=== PATIENT | female | born 1975 | race American Indian/Alaskan Native ===

== ENCOUNTER 2016-07-27 08:04 | Emergency (ER) | payer MEDICAID, OTHER ==
--- NOTE | 2016-07-27 08:11 | EDM.PDOC ---
ED HPI GENERAL MEDICAL PROBLEM - General Chief Complaint: Respiratory Problem Stated Complaint: COUGH Time Seen by Provider: 07/27/16 08:10 Source of Information: Reports: Patient, RN, RN Notes Reviewed History Limitations: Reports: No Limitations - History of Present Illness INITIAL COMMENTS - FREE TEXT/NARRATIVE: C/O cough for several days. Pt is unsure of fevers, but thinks that she has been having some fevers over the last few days. Pt's boyfriend reports pt has long Hx of alcohol abuse and has been drinking for several months, states that several days ago she "turned yellow". Pt denies vomiting, but reports nausea and no appetite. Denies diarrhea, bloody stool, black stool, or melena. Pt is unable to provide any further history. Onset: Unknown/Unsure Duration: Getting Worse Location: Reports: Generalized Severity: Severe Improves with: Reports: None Worsens with: Reports: None Context: Denies: Activity, Exercise, Lifting, Sick Contact, Trauma Associated Symptoms: Reports: Loss of Appetite - Related Data Allergies Allergy/AdvReac Type Severity Reaction Status Date / Time No Known Allergies Allergy Verified 07/27/16 08:33 Home Meds: Home Meds Ibuprofen [Motrin] 800 mg PO Q6H 01/26/15 [History] Past Medical History Other HEENT History: dental caries Respiratory History: Reports: Asthma Gastrointestinal History: Reports: Cirrhosis, Gastritis, GERD, GI Bleed, Hepatitis, Jaundice, Pancreatitis [employer] History: Reports: Other OB/BYN History: 6 pregnancies Psychiatric History: Reports: Addiction Social & Family History - Family History Family Medical History: Noncontributory - Tobacco Use Smoking Status *Q: Former Smoker Years of Tobacco use: 15 Packs/Tins Daily: 0.2 Used Tobacco, but Quit: Yes Month Tobacco Last Used: 09/25/2014 Second Hand Smoke Exposure: No - Caffeine Use Caffeine Use: Reports: Coffee, Soda, Tea - Alcohol Use Days Per Week of Alcohol Use: 7 Number of Drinks Per Day: 4 Total Drinks Per Week: 28 - Recreational Drug Use Recreational Drug Use: No Drug Use in Last 12 Months: No - Sexual History Sexual History: Reports: Sexually Active - Living Situation & Occupation Living situation: Reports: with Significant Other Occupation: Unemployed ED ROS GENERAL - Review of Systems Review Of Systems: ROS reveals no pertinent complaints other than HPI. ED EXAM, GENERAL - Physical Exam Exam: See Below Exam Limited By: Altered Mental Status (mild/slightly confused) General Appearance: Alert, No Apparent Distress Eye Exam: Bilateral Eye: EOMI, PERRL, Other (scleral icterus) Ears: Normal External Exam Nose: Normal Inspection, Normal Mucosa, No Blood Throat/Mouth: Normal Lips, Normal Oropharynx, Normal Voice, No Airway Compromise Head: Atraumatic, Normocephalic Neck: Normal Inspection, Supple, Non-Tender, Full Range of Motion. No: Lymphadenopathy (L), Lymphadenopathy (R) Respiratory/Chest: No Respiratory Distress, No Accessory Muscle Use, Decreased Breath Sounds, Crackles, Rhonchi (bibasilar) Cardiovascular: Regular Rate, Rhythm, No Edema, No Gallop, No JVD, No Murmur, No Rub GI/Abdominal: Normal Bowel Sounds, Soft, No Distention, Pelvis Stable, Tender ( mild generalized upper abdominal tenderness). No: Guarding, Rigid, Rebound Rectal (Female) Exam: Deferred Back Exam: Normal Inspection, Full Range of Motion. No: CVA Tenderness (L), CVA Tenderness (R) Extremities: Normal Inspection, Normal Range of Motion, Non-Tender, Normal Capillary Refill, No Pedal Edema Neurological: Alert, CN II-XII Intact, Confused (slightly), Slow to Respond Psychiatric: Depressed Mood, Flat Affect Skin Exam: Warm, Dry, Intact, Jaundice EKG INTERPRETATION EKG Date: 07/27/16 Time: 09:03 Rhythm: other (SR) Rate (beats/min): 90 [employer]: normal P-wave: present QRS: normal ST-T: other (borderline flat T waves in anterior leads) QT: prolonged Comparison: NA - no prior EKG Course - Vital Signs Last Recorded V/S: Last Vital Signs Temp 36.4 C 07/27/16 08:17 Pulse 82 07/27/16 10:04 Resp 16 07/27/16 10:04 BP 73/41 L 07/27/16 10:04 Pulse Ox 96 07/27/16 10:04 - Orders/Labs/Meds Orders: Active Orders 24 hr Category Date Time Status EKG 12 Lead [EKG Documentation Completion] [RC] STAT Care 07/27/16 08:30 Active Insert Escobar Catheter [Insert Urinary Catheter] [OM.PC] Care 07/27/16 10:00 Ordered Q24H Peripheral IV Care [RC] . DIRECTED Care 07/27/16 08:31 Active Urinary Catheter Assessment [RC] ASDIRECTED Care 07/27/16 09:53 Active CULTURE BLOOD [BC] Stat Lab 07/27/16 08:48 Received CULTURE BLOOD [BC] Stat Lab 07/27/16 08:54 Received Sodium Chloride 0.9% [Saline Flush] Med 07/27/16 08:31 Active 10 ml FLUSH ASDIRECTED PRN Blood Culture x2 Reflex Set [OM.PC] Stat Oth 07/27/16 08:31 Ordered Peripheral IV Insertion Adult [OM.PC] Stat Oth 07/27/16 08:30 Ordered Medication Orders Sodium Chloride (Saline Flush) 10 ml FLUSH ASDIRECTED PRN PRN Reason: Keep Vein Open Last Admin: 07/27/16 10:01 Dose: 10 ml Admin: 07/27/16 08:39 Dose: 10 ml Labs: Laboratory Tests 07/27/16 07/27/16 07/27/16 Range/Units 08:48 08:48 08:48 WBC 18.9 H (5.0-10.0) 10^3/uL RBC 3.07 L (4.2-5.4) 10^6/uL Hgb 9.8 L (12.0-16.0) g/dL Hct 27.9 L (37.0-47.0) % MCV 90.9 (80-100) fL MCH 31.9 (27.0-34.0) pg MCHC 35.1 H (33.0-35.0) g/dL Plt Count 159 (150-450) 10^3/uL Neut % (Auto) 85.8 H (42.2-75.2) % Lymph % (Auto) 7.2 L (20.5-50.1) % Garden % (Auto) 6.3 (2-8) % Eos % (Auto) 0.6 L (1.0-3.0) % Baso % (Auto) 0.1 (0.0-1.0) % Add Manual Diff Yes Neutrophils % (Manual) 81 % Band Neutrophils % 2 % Lymphocytes % (Manual) 11 % Monocytes % (Manual) 6 % Hypochromasia 1+ slight PT 16.3 H (9.0-12.0) SEC INR 1.6 H (0.9-1.2) APTT 32.5 (22.0-34.0) SEC Sodium 127 L (135-145) mmol/L Potassium 2.2 L* (3.6-5.0) mmol/L Chloride 81 L (101-111) mmol/L Carbon Dioxide 27.0 (21.0-31.0) mmol/L Anion Gap 21.2 BUN 81 H (7-18) mg/dL Creatinine 4.5 H (0.6-1.3) mg/dL Est Cr Clr Drug Dosing 15.25 mL/min Estimated GFR (MDRD) 11 BUN/Creatinine Ratio 18.00 Glucose 78 (74-105) mg/dL Lactic Acid (0.5-2.2) mmol/L Calcium 6.4 L (8.4-10.2) mg/dl Total Bilirubin 12.9 H (0.2-1.0) mg/dL AST 258 H (10-42) IU/L ALT 50 (10-60) IU/L Alkaline Phosphatase 555 H (42-121) IU/L Ammonia (11-35) umol/L Total Protein 5.6 L (6.7-8.2) g/dl Albumin 1.5 L (3.2-5.5) g/dl Globulin 4.1 Albumin/Globulin Ratio 0.37 Amylase 13 L (28-100) U/L Lipase < 9 L (22-51) U/L Urine Color (YELLOW) Urine Appearance (CLEAR) Urine pH (5.0-9.0) Ur Specific Beggs (1.005-1.030) Urine Protein (NEGATIVE) Urine Glucose (UA) (NEGATIVE) Urine Ketones (NEGATIVE) Urine Occult Blood (NEGATIVE) Urine Nitrite (NEGATIVE) Urine Bilirubin (NEGATIVE) Urine Urobilinogen (0.2-1.0) mg/dL Ur Leukocyte Esterase (NEGATIVE) Urine RBC /HPF Urine WBC (0-5/HPF) /HPF Ur Epithelial Cells /HPF Urine Bacteria (0-FEW/HPF) /HPF Urine Opiates Screen (NEGATIVE) Ur Oxycodone Screen (NEGATIVE) Urine Methadone Screen (NEGATIVE) Ur Barbiturates Screen (NEGATIVE) U Tricyclic Antidepress (NEGATIVE) Ur Phencyclidine Scrn (NEGATIVE) Ur Amphetamine Screen (NEGATIVE) U Methamphetamines Scrn (NEGATIVE) Urine MDMA Screen (NEGATIVE) U Benzodiazepines Scrn (NEGATIVE) Urine Cocaine Screen (NEGATIVE) U Marijuana (THC) Screen (NEGATIVE) Ethyl Alcohol < 5 mg/dL 07/27/16 07/27/16 07/27/16 Range/Units 08:48 08:48 10:15 WBC (5.0-10.0) 10^3/uL RBC (4.2-5.4) 10^6/uL Hgb (12.0-16.0) g/dL Hct (37.0-47.0) % MCV (80-100) fL MCH (27.0-34.0) pg MCHC (33.0-35.0) g/dL Plt Count (150-450) 10^3/uL Neut % (Auto) (42.2-75.2) % Lymph % (Auto) (20.5-50.1) % Garden % (Auto) (2-8) % Eos % (Auto) (1.0-3.0) % Baso % (Auto) (0.0-1.0) % Add Manual Diff Neutrophils % (Manual) % Band Neutrophils % % Lymphocytes % (Manual) % Monocytes % (Manual) % Hypochromasia PT (9.0-12.0) SEC INR (0.9-1.2) APTT (22.0-34.0) SEC Sodium (135-145) mmol/L Potassium (3.6-5.0) mmol/L Chloride (101-111) mmol/L Carbon Dioxide (21.0-31.0) mmol/L Anion Gap BUN (7-18) mg/dL Creatinine (0.6-1.3) mg/dL Est Cr Clr Drug Dosing mL/min Estimated GFR (MDRD) BUN/Creatinine Ratio Glucose (74-105) mg/dL Lactic Acid 1.8 (0.5-2.2) mmol/L Calcium (8.4-10.2) mg/dl Total Bilirubin (0.2-1.0) mg/dL AST (10-42) IU/L ALT (10-60) IU/L Alkaline Phosphatase (42-121) IU/L Ammonia 46 H (11-35) umol/L Total Protein (6.7-8.2) g/dl Albumin (3.2-5.5) g/dl Globulin Albumin/Globulin Ratio Amylase (28-100) U/L Lipase (22-51) U/L Urine Color Dark yellow (YELLOW) Urine Appearance Turbid (CLEAR) Urine pH 5.5 (5.0-9.0) Ur Specific Beggs 1.010 (1.005-1.030) Urine Protein 30 H (NEGATIVE) Urine Glucose (UA) Negative (NEGATIVE) Urine Ketones Negative (NEGATIVE) Urine Occult Blood Trace-lysed H (NEGATIVE) Urine Nitrite Negative (NEGATIVE) Urine Bilirubin Large H (NEGATIVE) Urine Urobilinogen 1.0 (0.2-1.0) mg/dL Ur Leukocyte Esterase Small H (NEGATIVE) Urine RBC 5-10 H /HPF Urine WBC 40-50 H (0-5/HPF) /HPF Ur Epithelial Cells Few /HPF Urine Bacteria Many H (0-FEW/HPF) /HPF Urine Opiates Screen (NEGATIVE) Ur Oxycodone Screen (NEGATIVE) Urine Methadone Screen (NEGATIVE) Ur Barbiturates Screen (NEGATIVE) U Tricyclic Antidepress (NEGATIVE) Ur Phencyclidine Scrn (NEGATIVE) Ur Amphetamine Screen (NEGATIVE) U Methamphetamines Scrn (NEGATIVE) Urine MDMA Screen (NEGATIVE) U Benzodiazepines Scrn (NEGATIVE) Urine Cocaine Screen (NEGATIVE) U Marijuana (THC) Screen (NEGATIVE) Ethyl Alcohol mg/dL 07/27/16 Range/Units 10:15 WBC (5.0-10.0) 10^3/uL RBC (4.2-5.4) 10^6/uL Hgb (12.0-16.0) g/dL Hct (37.0-47.0) % MCV (80-100) fL MCH (27.0-34.0) pg MCHC (33.0-35.0) g/dL Plt Count (150-450) 10^3/uL Neut % (Auto) (42.2-75.2) % Lymph % (Auto) (20.5-50.1) % Garden % (Auto) (2-8) % Eos % (Auto) (1.0-3.0) % Baso % (Auto) (0.0-1.0) % Add Manual Diff Neutrophils % (Manual) % Band Neutrophils % % Lymphocytes % (Manual) % Monocytes % (Manual) % Hypochromasia PT (9.0-12.0) SEC INR (0.9-1.2) APTT (22.0-34.0) SEC Sodium (135-145) mmol/L Potassium (3.6-5.0) mmol/L Chloride (101-111) mmol/L Carbon Dioxide (21.0-31.0) mmol/L Anion Gap BUN (7-18) mg/dL Creatinine (0.6-1.3) mg/dL Est Cr Clr Drug Dosing mL/min Estimated GFR (MDRD) BUN/Creatinine Ratio Glucose (74-105) mg/dL Lactic Acid (0.5-2.2) mmol/L Calcium (8.4-10.2) mg/dl Total Bilirubin (0.2-1.0) mg/dL AST (10-42) IU/L ALT (10-60) IU/L Alkaline Phosphatase (42-121) IU/L Ammonia (11-35) umol/L Total Protein (6.7-8.2) g/dl Albumin (3.2-5.5) g/dl Globulin Albumin/Globulin Ratio Amylase (28-100) U/L Lipase (22-51) U/L Urine Color (YELLOW) Urine Appearance (CLEAR) Urine pH (5.0-9.0) Ur Specific Beggs (1.005-1.030) Urine Protein (NEGATIVE) Urine Glucose (UA) (NEGATIVE) Urine Ketones (NEGATIVE) Urine Occult Blood (NEGATIVE) Urine Nitrite (NEGATIVE) Urine Bilirubin (NEGATIVE) Urine Urobilinogen (0.2-1.0) mg/dL Ur Leukocyte Esterase (NEGATIVE) Urine RBC /HPF Urine WBC (0-5/HPF) /HPF Ur Epithelial Cells /HPF Urine Bacteria (0-FEW/HPF) /HPF Urine Opiates Screen Negative (NEGATIVE) Ur Oxycodone Screen Negative (NEGATIVE) Urine Methadone Screen Negative (NEGATIVE) Ur Barbiturates Screen Negative (NEGATIVE) U Tricyclic Antidepress Negative (NEGATIVE) Ur Phencyclidine Scrn Negative (NEGATIVE) Ur Amphetamine Screen Negative (NEGATIVE) U Methamphetamines Scrn Negative (NEGATIVE) Urine MDMA Screen Negative (NEGATIVE) U Benzodiazepines Scrn Negative (NEGATIVE) Urine Cocaine Screen Negative (NEGATIVE) U Marijuana (THC) Screen Negative (NEGATIVE) Ethyl Alcohol mg/dL Meds: Medications Generic Name Dose Route Start Last Admin Trade Name Freq PRN Reason Stop Dose Admin Sodium Chloride 10 ml 07/27/16 08:31 06/02/17 10:01 Saline Flush FLUSH 10 ml ASDIRECTED PRN Administration Keep Vein Open Discontinued Medications Generic Name Dose Route Start Last Admin Trade Name Regino PRN Reason Stop Dose Admin Sodium Chloride 1,000 mls @ 999 mls/hr 07/27/16 08:31 07/27/16 08:31 Normal Saline IV 07/27/16 09:31 999 mls/hr .BOLUS ONE Administration Levofloxacin/Dextrose 500 mg/ 100 mls @ 100 mls/hr 07/27/16 09:30 07/27/16 09 :57 Premix IV 07/27/16 10:29 100 mls/hr ONETIME ONE Administration Potassium Chloride 10 meq/ 100 mls @ 100 mls/hr 07/27/16 09:32 07/27/16 09:37 Premix IV 07/27/16 10:31 100 mls/hr ONETIME ONE Administration Sodium Chloride 1,000 mls @ 999 mls/hr 07/27/16 09:42 07/27/16 09:50 Normal Saline IV 07/27/16 10:42 999 mls/hr .BOLUS ONE Administration Potassium Chloride 40 meq 07/27/16 09:32 07/27/16 09:37 Klor-Con 10 PO 07/27/16 09:33 40 meq ONETIME ONE Administration - Radiology Interpretation Free Text/Narrative:: CXR: Bibasilar segmental atelectasis vs infiltrates, see Rad. report. Departure - Departure Time of Disposition: 10:00 Disposition: DC/Tfer to Acute Hospital 02 Condition: critical Clinical Impression: Acute liver failure without hepatic coma, Hepatorenal syndrome, Hypokalemia, Alcohol abuse Acute kidney failure Qualifiers: Acute renal failure type: unspecified Qualified Code(s): N17.9 - Acute kidney failure, unspecified Pneumonia Qualifiers: Pneumonia type: due to unspecified organism Laterality: bilateral Lung location : lower lobe of lung Qualified Code(s): J18.9 - Pneumonia, unspecified organism - Discharge Information Forms: ED Department Discharge, Interfacility Transfer EMTALA - My Orders Last 24 Hours: My Active Orders 07/27/16 08:30 EKG 12 Lead [EKG Documentation Completion] [RC] STAT Peripheral IV Insertion Adult [OM.PC] Stat 07/27/16 08:31 Peripheral IV Care [RC] . DIRECTED Sodium Chloride 0.9% [Saline Flush] 10 ml FLUSH ASDIRECTED PRN Blood Culture x2 Reflex Set [OM.PC] Stat 07/27/16 08:48 CULTURE BLOOD [BC] Stat 07/27/16 08:54 CULTURE BLOOD [BC] Stat 07/27/16 09:53 Urinary Catheter Assessment [RC] ASDIRECTED 07/27/16 10:00 Insert Escobar Catheter [Insert Urinary Catheter] [OM.PC] Q24H - Assessment/Plan Last 24 Hours: My Active Orders 07/27/16 08:30 EKG 12 Lead [EKG Documentation Completion] [RC] STAT Peripheral IV Insertion Adult [OM.PC] Stat 07/27/16 08:31 Peripheral IV Care [RC] . DIRECTED Sodium Chloride 0.9% [Saline Flush] 10 ml FLUSH ASDIRECTED PRN Blood Culture x2 Reflex Set [OM.PC] Stat 07/27/16 08:48 CULTURE BLOOD [BC] Stat 07/27/16 08:54 CULTURE BLOOD [BC] Stat 07/27/16 09:53 Urinary Catheter Assessment [RC] ASDIRECTED 07/27/16 10:00 Insert Ecsobar Catheter [Insert Urinary Catheter] [OM.PC] Q24H
[2016-07-27] MEDS ORDERED: Sodium Chloride 0.9% 1,000 ML IV ONE ×2 (08:31→09:42)
[2016-07-27] MEDS: Sodium Chloride 0.9% 10 ML Syringe FLUSH PRN ×2 (08:39→10:01)
[2016-07-27 09:20] LABS: CHLORIDE,CL 81 mmol/L (101-111); SODIUM,NA 127 mmol/L (135-145)
[2016-07-27] MEDS ORDERED: Levofloxacin/Dextrose 5%-Water 500 MG in Premix Bag 1 BAG IV ONE (09:30)
[2016-07-27] MEDS ORDERED: Potassium Chloride 10 MEQ in Premix Bag 1 BAG IV ONE (09:32)
[2016-07-27] MEDS ORDERED: Potassium Chloride 10 MEQ Tab.ER PO ONE (09:32)
[2016-07-27 10:05] VITALS: BP 73/41
--- NOTE | 2016-08-31 12:45 | EKG ---
07/27/2016 - MARYAN VILLANUEVA - [id number] EKG shows normal sinus rhythm with heart rate of 90. No significant ST elevation or ST depression noted on this 12-lead EKG. [facility] /[id number]
== END 2016-07-27 11:00 ==
LOC: DL.ED 08:04
DX: J18.9 Pneumonia, unspecified organism (principal); N17.9 Acute kidney failure, unspecified; K72.00 Acute and subacute hepatic failure without coma; K76.7 Hepatorenal syndrome; E87.6 Hypokalemia; F10.10 Alcohol abuse, uncomplicated; J45.909 Unspecified asthma, uncomplicated; K21.9 Gastro-esophageal reflux disease without esophagitis; Z87.891 Personal history of nicotine dependence
CPT/HCPCS: 36415; 51702; 71010; 80053; 80305; 81001; 82140; 82150; 83605; 83690; 85025; 85610; 85730; 87040; 93005; 96365; 96366; 96368; 99285; A9270; G0480; J1956; J3480; J7030; J7050

== ENCOUNTER 2016-11-19 19:13 | Emergency (ER) | payer MEDICAID, OTHER ==
[2016-11-19 19:30] VITALS: BP 148/99
[2016-11-19] MEDS ORDERED: Ondansetron 4 MG Tab.DIS PO ONE (19:37)
[2016-11-19] MEDS ORDERED: Metoclopramide 10 MG/2 ML SDV IVPUSH ONE (22:19)
[2016-11-19] MEDS ORDERED: Famotidine 20 MG/2 ML SDV IVPUSH ONE (22:19)
[2016-11-19 23:05] LABS: CHLORIDE,CL 107 mmol/L (101-111); SODIUM,NA 144 mmol/L (135-145)
[2016-11-19] MEDS ORDERED: Potassium Chloride 10 MEQ in Premix Bag 1 BAG IV ONE (23:14)
[2016-11-19] MEDS ORDERED: Sodium Chloride 0.9% 1,000 ML IV ONE (23:15)
--- NOTE | 2016-11-19 23:28 | EDM.PDOC ---
ED HPI GENERAL MEDICAL PROBLEM - General Chief Complaint: Gastrointestinal Problem Stated Complaint: [id number] CHEST PAIN Time Seen by Provider: 11/19/16 22:17 Source of Information: Reports: Patient History Limitations: Reports: No Limitations - History of Present Illness INITIAL COMMENTS - FREE TEXT/NARRATIVE: vomiting since noon today, clear liquid. Admits drinking 2 days ago. C/o epigastric pain, worse with vomiting Epigastric Pain Score (Numeric/FACES): 8 - Related Data Allergies Allergy/AdvReac Type Severity Reaction Status Date / Time No Known Allergies Allergy Verified 11/19/16 19:30 Home Meds: Home Meds Ibuprofen [Motrin] 800 mg PO Q6H 01/26/15 [History] Albuterol Sulfate [Proair Hfa] 2 puff INH DAILY 11/19/16 [History] Iron 18 mg PO DAILY 11/19/16 [History] Mometasone/Formoterol [Dulera 100-5 MCG] 2 puff INH BID 11/19/16 [History] Multivitamin [One Daily] 1 each PO DAILY 11/19/16 [History] Past Medical History Other HEENT History: dental caries Cardiovascular History: Reports: None Respiratory History: Reports: Asthma Gastrointestinal History: Reports: Cirrhosis, Gastritis, GERD, GI Bleed, Hepatitis, Jaundice, Pancreatitis Genitourinary History: Reports: None [employer] History: Reports: Other OB/BYN History: 6 pregnancies Musculoskeletal History: Reports: None Neurological History: Reports: None Psychiatric History: Reports: Addiction Endocrine/Metabolic History: Reports: None Hematologic History: Reports: Other (See Below) Other Hematologic History: jaundice Immunologic History: Reports: None Oncologic (Cancer) History: Reports: None Dermatologic History: Reports: None Other Dermatologic History: jaundice - Infectious Disease History Infectious Disease History: Reports: Hepatitis C - Past Surgical History Head Surgeries/Procedures: Reports: None Social & Family History - Family History Family Medical History: Noncontributory - Tobacco Use Smoking Status *Q: Never Smoker Years of Tobacco use: 15 Packs/Tins Daily: 0.2 Used Tobacco, but Quit: Yes Month Tobacco Last Used: 09/25/2014 Second Hand Smoke Exposure: No - Caffeine Use Caffeine Use: Reports: Coffee, Soda, Tea - Alcohol Use Days Per Week of Alcohol Use: 7 Number of Drinks Per Day: 4 Total Drinks Per Week: 28 - Recreational Drug Use Recreational Drug Use: No Drug Use in Last 12 Months: No - Sexual History Sexual History: Reports: Sexually Active - Living Situation & Occupation Living situation: Reports: with Significant Other Occupation: Unemployed ED ROS GENERAL - Review of Systems Review Of Systems: See Below Constitutional: Reports: No Symptoms HEENT: Reports: No Symptoms Respiratory: Reports: No Symptoms Cardiovascular: Reports: No Symptoms GI/Abdominal: Reports: Abdominal Pain, Decreased Appetite, Nausea, Vomiting : Reports: No Symptoms Musculoskeletal: Reports: No Symptoms Skin: Reports: No Symptoms Neurological: Reports: No Symptoms ED EXAM, GI/ABD - Physical Exam Exam: See Below Exam Limited By: No Limitations General Appearance: Alert, Mild Distress Eyes: Bilateral: EOMI, Pale Conjunctiva Ears: Normal External Exam Nose: Normal Inspection Throat/Mouth: Normal Inspection Head: Atraumatic, Normocephalic Neck: Normal Inspection Respiratory/Chest: No Respiratory Distress, Lungs Clear, Normal Breath Sounds Cardiovascular: Normal Peripheral Pulses, Regular Rate, Rhythm GI/Abdominal Exam: Normal Bowel Sounds, Soft, Tender (epigastric LUQ), Other ( clear emesis) Back Exam: Normal Inspection Neurological: Alert, Oriented, Normal Cognition Skin Exam: Warm, Dry, Intact, Normal Color Course - Vital Signs Last Recorded V/S: Last Vital Signs Temp 97 F 11/19/16 19:26 Pulse 92 11/19/16 19:26 Resp 18 11/19/16 19:26 BP 148/99 H 11/19/16 19:26 Pulse Ox 96 11/19/16 19:26 - Orders/Labs/Meds Labs: Laboratory Tests 11/19/16 11/19/16 11/19/16 Range/Units 22:30 22:30 22:45 WBC 7.8 (5.0-10.0) 10^3/uL RBC 4.00 L (4.2-5.4) 10^6/uL Hgb 12.2 D (12.0-16.0) g/dL Hct 36.8 L (37.0-47.0) % MCV 92.0 (80-100) fL MCH 30.5 (27.0-34.0) pg MCHC 33.2 (33.0-35.0) g/dL Plt Count 284 D (150-450) 10^3/uL Neut % (Auto) 84.3 H (42.2-75.2) % Lymph % (Auto) 9.9 L (20.5-50.1) % Coffey % (Auto) 5.7 (2-8) % Eos % (Auto) 0.0 L (1.0-3.0) % Baso % (Auto) 0.1 (0.0-1.0) % Sodium 144 D (135-145) mmol/L Potassium 3.0 L (3.6-5.0) mmol/L Chloride 107 D (101-111) mmol/L Carbon Dioxide 22.0 (21.0-31.0) mmol/L Anion Gap 18.0 BUN 10 D (7-18) mg/dL Creatinine 1.0 D (0.6-1.3) mg/dL Est Cr Clr Drug Dosing 67.29 mL/min Estimated GFR (MDRD) > 60 BUN/Creatinine Ratio 10.00 Glucose 108 H (74-105) mg/dL Calcium 10.2 D (8.4-10.2) mg/dl Total Bilirubin 1.4 H (0.2-1.0) mg/dL AST 88 H (10-42) IU/L ALT 43 (10-60) IU/L Alkaline Phosphatase 124 H (42-121) IU/L Troponin I < 0.02 (0.00-0.02) ng/ml Total Protein 7.8 (6.7-8.2) g/dl Albumin 3.8 (3.2-5.5) g/dl Globulin 4.0 Albumin/Globulin Ratio 0.95 Amylase 77 (28-100) U/L Lipase 18 L (22-51) U/L Urine Color (YELLOW) Urine Appearance (CLEAR) Urine pH (5.0-9.0) Ur Specific Mather (1.005-1.030) Urine Protein (NEGATIVE) Urine Glucose (UA) (NEGATIVE) Urine Ketones (NEGATIVE) Urine Occult Blood (NEGATIVE) Urine Nitrite (NEGATIVE) Urine Bilirubin (NEGATIVE) Urine Urobilinogen (0.2-1.0) mg/dL Ur Leukocyte Esterase (NEGATIVE) Urine RBC /HPF Urine WBC (0-5/HPF) /HPF Ur Epithelial Cells /HPF Urine Bacteria (0-FEW/HPF) /HPF Urinalysis Comment Urine Opiates Screen Negative (NEGATIVE) Ur Oxycodone Screen Negative (NEGATIVE) Urine Methadone Screen Negative (NEGATIVE) Ur Barbiturates Screen Negative (NEGATIVE) U Tricyclic Antidepress Negative (NEGATIVE) Ur Phencyclidine Scrn Negative (NEGATIVE) Ur Amphetamine Screen Negative (NEGATIVE) U Methamphetamines Scrn Negative (NEGATIVE) Urine MDMA Screen Negative (NEGATIVE) U Benzodiazepines Scrn Negative (NEGATIVE) Urine Cocaine Screen Negative (NEGATIVE) U Marijuana (THC) Screen Negative (NEGATIVE) Ethyl Alcohol < 5 mg/dL 11/19/16 Range/Units 22:45 WBC (5.0-10.0) 10^3/uL RBC (4.2-5.4) 10^6/uL Hgb (12.0-16.0) g/dL Hct (37.0-47.0) % MCV (80-100) fL MCH (27.0-34.0) pg MCHC (33.0-35.0) g/dL Plt Count (150-450) 10^3/uL Neut % (Auto) (42.2-75.2) % Lymph % (Auto) (20.5-50.1) % [place]offey % (Auto) (2-8) % Eos % (Auto) (1.0-3.0) % Baso % (Auto) (0.0-1.0) % Sodium (135-145) mmol/L Potassium (3.6-5.0) mmol/L Chloride (101-111) mmol/L Carbon Dioxide (21.0-31.0) mmol/L Anion Gap BUN (7-18) mg/dL Creatinine (0.6-1.3) mg/dL Est Cr Clr Drug Dosing mL/min Estimated GFR (MDRD) BUN/Creatinine Ratio Glucose (74-105) mg/dL Calcium (8.4-10.2) mg/dl Total Bilirubin (0.2-1.0) mg/dL AST (10-42) IU/L ALT (10-60) IU/L Alkaline Phosphatase (42-121) IU/L Troponin I (0.00-0.02) ng/ml Total Protein (6.7-8.2) g/dl Albumin (3.2-5.5) g/dl Globulin Albumin/Globulin Ratio Amylase (28-100) U/L Lipase (22-51) U/L Urine Color Yellow (YELLOW) Urine Appearance Slightly cloudy (CLEAR) Urine pH 7.0 (5.0-9.0) Ur Specific Mather 1.015 (1.005-1.030) Urine Protein 30 H (NEGATIVE) Urine Glucose (UA) Negative (NEGATIVE) Urine Ketones 15 H (NEGATIVE) Urine Occult Blood Trace-lysed H (NEGATIVE) Urine Nitrite Negative (NEGATIVE) Urine Bilirubin Negative (NEGATIVE) Urine Urobilinogen 0.2 (0.2-1.0) mg/dL Ur Leukocyte Esterase Small H (NEGATIVE) Urine RBC 0-5 /HPF Urine WBC 5-10 H (0-5/HPF) /HPF Ur Epithelial Cells Moderate H /HPF Urine Bacteria Moderate H (0-FEW/HPF) /HPF Urinalysis Comment Urine Opiates Screen (NEGATIVE) Ur Oxycodone Screen (NEGATIVE) Urine Methadone Screen (NEGATIVE) Ur Barbiturates Screen (NEGATIVE) U Tricyclic Antidepress (NEGATIVE) Ur Phencyclidine Scrn (NEGATIVE) Ur Amphetamine Screen (NEGATIVE) U Methamphetamines Scrn (NEGATIVE) Urine MDMA Screen (NEGATIVE) U Benzodiazepines Scrn (NEGATIVE) Urine Cocaine Screen (NEGATIVE) U Marijuana (THC) Screen (NEGATIVE) Ethyl Alcohol mg/dL Meds: Medications Discontinued Medications Generic Name Dose Route Start Last Admin Trade Name Freq PRN Reason Stop Dose Admin Famotidine 20 mg 11/19/16 22:19 11/19/16 22:58 Pepcid IVPUSH 11/19/16 22:20 20 mg ONETIME ONE Administration Potassium Chloride 10 meq/ 100 mls @ 100 mls/hr 11/19/16 23:14 11/19/16 23:21 Premix IV 11/20/16 00:13 100 mls/hr ONETIME ONE Administration Sodium Chloride 1,000 mls @ 999 mls/hr 11/19/16 23:15 11/19/16 23:20 Normal Saline IV 11/20/16 00:15 999 mls/hr .BOLUS ONE Administration Metoclopramide HCl 10 mg 11/19/16 22:19 11/19/16 22:58 Reglan IVPUSH 11/19/16 22:20 10 mg ONETIME ONE Administration Ondansetron HCl 4 mg 11/19/16 19:37 11/19/16 19:39 Zofran Odt PO 11/19/16 19:38 4 mg ONETIME ONE Administration Departure - Departure Time of Disposition: 01:07 Disposition: Home, Self-Care 01 Condition: Fair Clinical Impression: Gastritis due to alcohol without hemorrhage Qualifiers: Chronicity: acute Qualified Code(s): K29.20 - Alcoholic gastritis without bleeding - Discharge Information Instructions: Gastritis, Adult, [id number] Forms: ED Department Discharge Additional Instructions: bland diet avoid alcohol follow up with primary care to recheck potassium and liver enzymes on or Saturday.
== END 2016-11-20 01:17 | disposition home or self-care (01) ==
LOC: DL.ED 19:13
DX: K29.20 Alcoholic gastritis without bleeding (principal); J45.909 Unspecified asthma, uncomplicated; K21.9 Gastro-esophageal reflux disease without esophagitis; Z79.899 Other long term (current) drug therapy
CPT/HCPCS: 36415; 80053; 80305; 81001; 82150; 83690; 84484; 85025; 96361; 96365; 96375; 99283; A9270; G0480; J2765; J3480; J7030; S0028

== ENCOUNTER 2020-08-25 16:47 | Emergency (ER) | payer MEDICAID, OTHER ==
--- NOTE | 2020-08-25 17:16 | EDM.PDOC ---
<Wero Alcantar - Last Filed: 08/25/20 17:38> ED HPI GENERAL MEDICAL PROBLEM - General Chief Complaint: General Stated Complaint: [facility] Time Seen by Provider: 08/25/20 17:25 Source of Information: Reports: Patient History Limitations: Reports: No Limitations - History of Present Illness INITIAL COMMENTS - FREE TEXT/NARRATIVE: This 45 yo female patient was sent to the ED from the [facility] due to intermittent dizziness, frequent falls, with a history of liver failure. The patient reports she started to have intermittent dizziness about 1 month ago with frequent falls due to the dizziness. The patient reports she found out she was yesterday. The patient reports she was having some chest pain due to a fall for weeks. The patient reports she has noticed lower extremity weakness since 2003. The patient reports she has been eating normally and drinking plenty of fluids. The patient denies any drug or alcohol use. Onset: Unknown/Unsure Duration: Week(s): Location: Reports: Generalized Quality: Reports: Other Severity: Moderate Improves with: Reports: None Worsens with: Reports: None Context: Reports: Other Associated Symptoms: Reports: Weakness - Related Data Allergies Allergy/AdvReac Type Severity Reaction Status Date / Time No Known Allergies Allergy Verified 08/25/20 17:02 Home Meds: Home Meds Ibuprofen [Motrin] 800 mg PO Q6H PRN 01/26/15 [History] Albuterol Sulfate [Proair Hfa] 2 puff INH DAILY 11/19/16 [History] Iron 18 mg PO DAILY 11/19/16 [History] Mometasone/Formoterol [Dulera 100-5 MCG] 2 puff INH BID 11/19/16 [History] Multivitamin [One Daily] 1 each PO DAILY 11/19/16 [History] Past Medical History Other HEENT History: dental caries Cardiovascular History: Reports: None Respiratory History: Reports: Asthma Gastrointestinal History: Reports: Cirrhosis, Gastritis, GERD, GI Bleed, Hepatitis, Jaundice, Pancreatitis Genitourinary History: Reports: None COSTUME SPECIALIST History: Reports: Other COSTUME SPECIALIST History: 6 pregnancies Musculoskeletal History: Reports: None Neurological History: Reports: None Psychiatric History: Reports: Addiction Endocrine/Metabolic History: Reports: None Hematologic History: Reports: Other (See Below) Other Hematologic History: jaundice Immunologic History: Reports: None Oncologic (Cancer) History: Reports: None Dermatologic History: Reports: None Other Dermatologic History: jaundice - Infectious Disease History Infectious Disease History: Reports: Hepatitis C - Past Surgical History Head Surgeries/Procedures: Reports: None Social & Family History - Family History Family Medical History: No Pertinent Family History - Caffeine Use Caffeine Use: Reports: Coffee, Soda, Tea - Sexual History Sexual History: Reports: Sexually Active - Living Situation & Occupation Living situation: Reports: with Significant Other Occupation: Unemployed ED ROS GENERAL - Review of Systems Review Of Systems: Comprehensive ROS is negative, except as noted in HPI. ED EXAM, GENERAL - Physical Exam Exam: See Below Exam Limited By: No Limitations General Appearance: Alert, WD/WN, Mild Distress Eye Exam: Bilateral Eye: EOMI, Normal Inspection, PERRL Ears: Normal External Exam, Normal Canal, Hearing Grossly Normal, Normal TMs Nose: Normal Inspection, Normal Mucosa, No Blood Throat/Mouth: Normal Inspection, Normal Lips, Normal Teeth, Normal Gums, Normal Oropharynx, Normal Voice, No Airway Compromise Head: Other (Diffuse bruising to right side of face (patient denies abuse)) Neck: Normal Inspection, Supple, Non-Tender, Full Range of Motion Respiratory/Chest: No Respiratory Distress, Lungs Clear, Normal Breath Sounds, No Accessory Muscle Use, Other (generalized anterior chest wall pain) Cardiovascular: Normal Peripheral Pulses, Regular Rate, Rhythm, No Edema, No Gallop, No JVD, No Murmur, No Rub GI/Abdominal: Normal Bowel Sounds, Soft, Non-Tender, No Organomegaly, No Distention, No Abnormal Bruit, No Mass (Female) Exam: Deferred Rectal (Female) Exam: Deferred Back Exam: Normal Inspection, Full Range of Motion, NT Extremities: Normal Range of Motion, Non-Tender, No Pedal Edema, Normal Capillary Refill, Other (diffuse bruising) Neurological: Alert, Oriented, CN II-XII Intact, Normal Cognition, Normal Gait, Normal Reflexes, No Motor/Sensory Deficits Psychiatric: Normal Affect, Normal Mood Skin Exam: Other (Numerous bruises) Lymphatic: No Adenopathy #1 Interpretation EKG Date: 08/25/20 Time: 17:13 Rhythm: NSR Rate (Beats/Min): 87 [place]: Normal P-Wave: Present QRS: Normal ST-T: Normal QT: Normal Comparison: No Change Departure - Departure Disposition: Home, Self-Care 01 Clinical Impression: Anemia, UTI (urinary tract infection), Hx of fracture of rib, Falls frequently - Discharge Information Instructions: Fall Prevention in the Home, Adult, [id number], Urinary Tract Infection, Adult, [id number] Forms: ED Department Discharge Additional Instructions: Iron supplement as ordered by primary care recheck clinic Saturday, sooner if symptoms change, difficulty breathign weakness increased dizziness change positions slowly stay hydrated in warm weather keflex 500mg twice daily for 5 days <Valery Mendes - Last Filed: 08/25/20 20:54> Course - Vital Signs Last Recorded V/S: Last Vital Signs Temp 97.4 F 08/25/20 16:47 Pulse 90 08/25/20 16:47 Resp 24 H 08/25/20 16:47 BP 112/55 L 08/25/20 16:47 Pulse Ox 97 08/25/20 16:47 Orthostatic Blood Pressure [ 150/115 Standing] Orthostatic Blood Pressure [ 145/103 Sitting] Orthostatic Blood Pressure [ 142/98 Supine] - Orders/Labs/Meds Orders: Active Orders 24 hr Category Date Time Status Blood Glucose Check, Bedside [RC] ONETIME Care 08/25/20 19:24 Active EKG Documentation Completion [RC] STAT Care 08/25/20 17:10 Active Orthostatic Vital Signs [RC] ASDIRECTED Care 08/25/20 19:43 Active CULTURE URINE [RM] Urgent Lab 08/25/20 19:28 Received Labs: Laboratory Tests 08/25/20 08/25/20 08/25/20 Range/Units 17:35 17:35 17:35 WBC 3.6 L (5.0-10.0) 10^3/uL RBC 2.48 L (4.2-5.4) 10^6/uL Hgb 7.9 L D (12.0-16.0) g/dL Hct 25.6 L (37.0-47.0) % MCV 103.2 H D (80-100) fL MCH 31.9 (27.0-34.0) pg MCHC 30.9 L (33.0-35.0) g/dL Plt Count 208 D (150-450) 10^3/uL Neut % (Auto) 55.5 (42.2-75.2) % Lymph % (Auto) 26.7 (20.5-50.1) % [place] % (Auto) 13.1 H (2-8) % Eos % (Auto) 4.4 H (1.0-3.0) % Baso % (Auto) 0.3 (0.0-1.0) % PT (9.0-12.0) SEC INR (0.9-1.2) Sodium 142 (136-145) mmol/L Potassium 3.5 (3.5-5.1) mmol/L Chloride 109 H (98-107) mmol/L Carbon Dioxide 21 (21-32) mmol/L Anion Gap 15.5 H (7-13) mEq/L BUN 13 (7-18) mg/dL Creatinine 1.05 H (0.55-1.02) mg/dL Est Cr Clr Drug Dosing 61.52 mL/min Estimated GFR (MDRD) 57 BUN/Creatinine Ratio 12.4 (No establ ref range) Glucose 96 (70-99) mg/dL POC Glucose (70-99) mg/dL Calcium 8.1 L (8.5-10.1) mg/dL Total Bilirubin 0.8 (0.2-1.0) mg/dL AST 36 (15-37) U/L ALT 22 (14-59) U/L Alkaline Phosphatase 207 H (46-116) U/L Total Protein 7.6 (6.4-8.2) g/dL Albumin 2.7 L (3.4-5.0) g/dL Globulin 4.9 Albumin/Globulin Ratio 0.55 HCG, Quant 2 (0-6) mIU/mL Urine Color (YELLOW) Urine Appearance (CLEAR) Urine pH (5.0-9.0) Ur Specific [place] (1.005-1.030) Urine Protein (NEGATIVE) Urine Glucose (UA) (NEGATIVE) Urine Ketones (NEGATIVE) Urine Occult Blood (NEGATIVE) Urine Nitrite (NEGATIVE) Urine Bilirubin (NEGATIVE) Urine Urobilinogen (0.2-1.0) mg/dL Ur Leukocyte Esterase (NEGATIVE) Urine RBC /HPF Urine WBC (0-5/HPF) /HPF Ur Epithelial Cells (NOT SEEN) /HPF Amorphous Sediment (NOT SEEN) /HPF Urine Bacteria (0-FEW/HPF) /HPF Urine Mucus (NOT SEEN) /LPF Urine HCG, Qual 08/25/20 08/25/20 08/25/20 Range/Units 19:23 19:27 19:28 WBC (5.0-10.0) 10^3/uL RBC (4.2-5.4) 10^6/uL Hgb (12.0-16.0) g/dL Hct (37.0-47.0) % MCV (80-100) fL MCH (27.0-34.0) pg MCHC (33.0-35.0) g/dL Plt Count (150-450) 10^3/uL Neut % (Auto) (42.2-75.2) % Lymph % (Auto) (20.5-50.1) % [place] % (Auto) (2-8) % Eos % (Auto) (1.0-3.0) % Baso % (Auto) (0.0-1.0) % PT 11.5 (9.0-12.0) SEC INR 1.1 (0.9-1.2) Sodium (136-145) mmol/L Potassium (3.5-5.1) mmol/L Chloride (98-107) mmol/L Carbon Dioxide (21-32) mmol/L Anion Gap (7-13) mEq/L BUN (7-18) mg/dL Creatinine (0.55-1.02) mg/dL Est Cr Clr Drug Dosing mL/min Estimated GFR (MDRD) BUN/Creatinine Ratio (No establ ref range) Glucose (70-99) mg/dL POC Glucose 82 (70-99) mg/dL Calcium (8.5-10.1) mg/dL Total Bilirubin (0.2-1.0) mg/dL AST (15-37) U/L ALT (14-59) U/L Alkaline Phosphatase (46-116) U/L Total Protein (6.4-8.2) g/dL Albumin (3.4-5.0) g/dL Globulin Albumin/Globulin Ratio HCG, Quant (0-6) mIU/mL Urine Color Yellow (YELLOW) Urine Appearance Slightly cloudy (CLEAR) Urine pH 7.0 (5.0-9.0) Ur Specific [place] 1.015 (1.005-1.030) Urine Protein Trace H (NEGATIVE) Urine Glucose (UA) Negative (NEGATIVE) Urine Ketones Negative (NEGATIVE) Urine Occult Blood Large H (NEGATIVE) Urine Nitrite Negative (NEGATIVE) Urine Bilirubin Negative (NEGATIVE) Urine Urobilinogen 0.2 (0.2-1.0) mg/dL Ur Leukocyte Esterase Small H (NEGATIVE) Urine RBC 75-100 H /HPF Urine WBC 10-20 H (0-5/HPF) /HPF Ur Epithelial Cells Rare (NOT SEEN) /HPF Amorphous Sediment Few (NOT SEEN) /HPF Urine Bacteria Occasional (0-FEW/HPF) /HPF Urine Mucus Occasional (NOT SEEN) /LPF Urine HCG, Qual 08/25/20 Range/Units 19:32 WBC (5.0-10.0) 10^3/uL RBC (4.2-5.4) 10^6/uL Hgb (12.0-16.0) g/dL Hct (37.0-47.0) % MCV (80-100) fL MCH (27.0-34.0) pg MCHC (33.0-35.0) g/dL Plt Count (150-450) 10^3/uL Neut % (Auto) (42.2-75.2) % Lymph % (Auto) (20.5-50.1) % [place] % (Auto) (2-8) % Eos % (Auto) (1.0-3.0) % Baso % (Auto) (0.0-1.0) % PT (9.0-12.0) SEC INR (0.9-1.2) Sodium (136-145) mmol/L Potassium (3.5-5.1) mmol/L Chloride (98-107) mmol/L Carbon Dioxide (21-32) mmol/L Anion Gap (7-13) mEq/L BUN (7-18) mg/dL Creatinine (0.55-1.02) mg/dL Est Cr Clr Drug Dosing mL/min Estimated GFR (MDRD) BUN/Creatinine Ratio (No establ ref range) Glucose (70-99) mg/dL POC Glucose (70-99) mg/dL Calcium (8.5-10.1) mg/dL Total Bilirubin (0.2-1.0) mg/dL AST (15-37) U/L ALT (14-59) U/L Alkaline Phosphatase (46-116) U/L Total Protein (6.4-8.2) g/dL Albumin (3.4-5.0) g/dL Globulin Albumin/Globulin Ratio HCG, Quant (0-6) mIU/mL Urine Color (YELLOW) Urine Appearance (CLEAR) Urine pH (5.0-9.0) Ur Specific [place] (1.005-1.030) Urine Protein (NEGATIVE) Urine Glucose (UA) (NEGATIVE) Urine Ketones (NEGATIVE) Urine Occult Blood (NEGATIVE) Urine Nitrite (NEGATIVE) Urine Bilirubin (NEGATIVE) Urine Urobilinogen (0.2-1.0) mg/dL Ur Leukocyte Esterase (NEGATIVE) Urine RBC /HPF Urine WBC (0-5/HPF) /HPF Ur Epithelial Cells (NOT SEEN) /HPF Amorphous Sediment (NOT SEEN) /HPF Urine Bacteria (0-FEW/HPF) /HPF Urine Mucus (NOT SEEN) /LPF Urine HCG, Qual Negative Departure - Departure Time of Disposition: 20:49 Condition: Good - Discharge Information *PRESCRIPTION DRUG MONITORING PROGRAM REVIEWED*: No *COPY OF PRESCRIPTION DRUG MONITORING REPORT IN PATIENT JALEEL: No Sepsis Event Note (ED) - Focused Exam Vital Signs: Vital Signs Temp Pulse Resp BP Pulse Ox 08/25/20 16:47 97.4 F 90 24 H 112/55 L 97 - My Orders Last 24 Hours: My Active Orders 08/25/20 19:24 Blood Glucose Check, Bedside [RC] ONETIME 08/25/20 19:28 CULTURE URINE [RM] Urgent 08/25/20 19:43 Orthostatic Vital Signs [RC] ASDIRECTED - Assessment/Plan Last 24 Hours: My Active Orders 08/25/20 19:24 Blood Glucose Check, Bedside [RC] ONETIME 08/25/20 19:28 CULTURE URINE [RM] Urgent 08/25/20 19:43 Orthostatic Vital Signs [RC] ASDIRECTED
[2020-08-25 17:54] VITALS: BP 112/55; PULSE 90
[2020-08-25 18:00] LABS: ANION GAP 15.5 mEq/L (7-13)
--- NOTE | 2020-08-25 20:00 | US ---
PROCEDURE INFORMATION: Exam: US , Limited Exam date and time: 08/25/2020 7:03 PM Age: 45 years old Clinical indication: Other: Upper abd pain; Gestational age or lmp: 4 w 5 d; Additional info: Positive hcg test yesterday. Quant today is 2 TECHNIQUE: Imaging protocol: Real-time ultrasound of the maternal uterus with image documentation. Exam focused on the clinical indication. COMPARISON: No relevant prior studies available. FINDINGS: Gestation: There is no gestational sac within the uterus. MATERNAL: Uterus: Uterus is normal in size and echogenicity. No myometrial mass. Its dimensions are 7.6 x 5 x 3.8 cm. Right adnexa: Right ovary is seen measuring 2.7 x 2 x 0.8 cm. No adnexal masses. Left adnexa: Left ovary is seen measuring 1.7 cm in diameter. Intraperitoneal space: No free fluid. IMPRESSION: There is no gestational sac within the uterus. Absence of a gestational sac within the uterus of a patient may indicate early intrauterine gestation, complete or ectopic .
--- NOTE | 2020-08-25 20:34 | CR ---
PROCEDURE INFORMATION: Exam: XR Ribs with PA Chest Exam date and time: 08/25/2020 8:02 PM Age: 45 years old Clinical indication: Other: Bruising over anterior chest; Additional info: Freq falls rib and chest bruising TECHNIQUE: Imaging protocol: XR bilateral ribs with PA chest. Views: 4 views COMPARISON: CR Chest 1V Frontal 07/27/2016 9:18 AM FINDINGS: Lungs: Unremarkable. No consolidation. Pleural spaces: Unremarkable. No pleural effusion. No pneumothorax. Heart/Mediastinum: Unremarkable. No cardiomegaly. Bones/joints: Bilateral old anterior rib fractures which are seen to affect anterior left 4th through 9th ribs and right 5th, 7th, 8th, and 9th ribs. IMPRESSION: Bilateral old anterior rib fractures which are seen to affect anterior left 4th through 9th ribs and right 5th, 7th, 8th, and 9th ribs.
[2020-08-25] MEDS ORDERED: Cephalexin 500 MG Cap PO ONE (20:53)
== END 2020-08-25 21:23 | disposition home or self-care (01) ==
LOC: DL.ED 16:47
DX: N39.0 Urinary tract infection, site not specified (principal); D64.9 Anemia, unspecified; R29.6 Repeated falls
CPT/HCPCS: 36415; 71111; 76815; 80053; 81001; 81025; 82272; 82947; 84702; 85025; 85610; 87086; 93005; 99285; A9270

== ENCOUNTER 2021-03-22 15:52 | Emergency (ER) | payer BC, MEDICAID, OTHER ==
[2021-03-22 16:00] VITALS: BP 116/87; PULSE 88
[2021-03-22 16:54] LABS: ANION GAP 14.8 mEq/L (7-13)
[2021-03-22] MEDS ORDERED: Iopamidol 612 MG/ML 100 ML Bottle IVPUSH ONE (17:14)
[2021-03-22] MEDS: Sodium Chloride 0.9% 1,000 ML IV ONE (19:07)
== END 2021-03-22 19:17 | disposition home or self-care (01) ==
LOC: DL.ED 15:52
DX: N30.01 Acute cystitis with hematuria (principal); K80.80 Other cholelithiasis without obstruction; Z87.891 Personal history of nicotine dependence
CPT/HCPCS: 36415; 74176; 74177; 80053; 81001; 81025; 83605; 85025; 86140; 87086; 99284-25

== ENCOUNTER 2021-10-10 01:27 | Inpatient (IN) | payer MEDICAID ==
[~2021-10-10 01:27] MED LIST: Sodium Chloride 0.9% 1,000 ML IV ONE
[2021-10-10] MEDS ORDERED: Ondansetron 4 MG/2 ML SDV IVPUSH ONE (01:29)
[2021-10-10] MEDS ORDERED: fentaNYL 100 MCG/2 ML SDV IVPUSH ONE (01:29)
[2021-10-10] MEDS ORDERED: Sodium Chloride 0.9% 1,000 ML IV ONE ×2 (01:50→02:28)
[2021-10-10] MEDS ORDERED: Piperacillin/Tazobactam 3.375 GM in Sodium Chloride 0.9% 100 ML IV ONE (01:59)
[2021-10-10] MEDS ORDERED: Iopamidol 755 Mg/ML 100 ML Bottle IVPUSH ONE (02:17)
[2021-10-10 02:20] LABS: ANION GAP 14.4 mEq/L (7-13); CHLORIDE,CL 109 mmol/L (98-107); SODIUM,NA 143 mmol/L (136-145)
[2021-10-10 02:27] LABS: ESTIMATED GFR 45 mL/min (>=60)
[2021-10-10 02:31] LABS: CORONAVIRUS COVID-19 NAA NEGATIVE (NEGATIVE)
[2021-10-10] MEDS ORDERED: Magnesium Sulfate/Water 2 GM in Premix Bag 1 BAG IV ONE (02:36)
[2021-10-10] MEDS: Norepinephrine 4 MG in Dextrose 5% in Water 246 ML IV SCH ×4 (02:37→04:15)
[2021-10-10 03:32] LABS: AMPHETAMINES,URINE NEGATIVE (NEGATIVE); BARBITURATES,URINE NEGATIVE (NEGATIVE); BENZODIAZEPINE,URINE NEGATIVE (NEGATIVE); MDMA (ECSTASY), URINE NEGATIVE (NEGATIVE); METHADONE,URINE NEGATIVE (NEGATIVE); METHAMPHETAMINES,URINE NEGATIVE (NEGATIVE); OPIATES,URINE NEGATIVE (NEGATIVE); OXYCODONE,URINE NEGATIVE (NEGATIVE); PHENCYCLIDINE,URINE NEGATIVE (NEGATIVE); TCA,URINE NEGATIVE (NEGATIVE)
[2021-10-10 08:15] LABS: ANION GAP 13.6 mEq/L (7-13)
[2021-10-10] MEDS ORDERED: Cyclobenzaprine 10 MG Tab PO ONE (08:51)
[2021-10-10] MEDS ORDERED: Piperacillin/Tazobactam 4.5 GM in Sodium Chloride 0.9% 100 ML IV ONE (08:54)
[2021-10-10] MEDS: Sodium Chloride 0.9% 1,000 ML IV ONE ×2 (09:05→15:13)
[2021-10-10] MEDS ORDERED: Ketorolac 30 MG/ML SDV IVPUSH ONE (10:00)
[2021-10-10] MEDS ORDERED: Acetaminophen 500 MG Tab PO ONE (11:13)
[2021-10-10] MEDS ORDERED: Bisacodyl 5 MG Tab PO PRN (15:16)
[2021-10-10] MEDS ORDERED: Docusate Sodium 100 MG Cap PO PRN (15:16)
[2021-10-10] MEDS ORDERED: Albuterol/Ipratropium 3.0-0.5 MG/3 ML Neb Soln NEB PRN (15:16)
[2021-10-10] MEDS ORDERED: Polyethylene Glycol 3350 Powder 17 GM Packet PO PRN (15:16)
[2021-10-10] MEDS ORDERED: Ondansetron 4 MG/2 ML SDV IVPUSH PRN (15:16)
[2021-10-10] MEDS ORDERED: HYDROmorphone 0.5 MG/0.5 ML Syringe IVPUSH PRN (15:16)
[2021-10-10] MEDS ORDERED: tiZANidine 4 MG Tab PO PRN (15:23)
[2021-10-10] MEDS ORDERED: Midodrine 2.5 MG Tab PO PRN (16:20)
[2021-10-10] MEDS: Acetaminophen 325 MG Tab PO PRN (16:54)
[2021-10-10] MEDS: Piperacillin/Tazobactam 3.375 GM in Sodium Chloride 0.9% 100 ML IV SCH ×2 (16:55→22:21)
[2021-10-10] MEDS: Hydrocortisone Sodium Succinate 100 MG/2 ML SDV IVPUSH SCH (17:59)
[2021-10-10] MEDS ORDERED: diphenhydrAMINE 50 MG/ML SDV IVPUSH PRN (19:56)
[2021-10-10] MEDS: Saccharomyces Boulardii (Probiotic) 250 MG Cap PO SCH (21:15)
[2021-10-10] MEDS: Zolpidem 5 MG Tab PO PRN (21:15)
[2021-10-10] MEDS ORDERED: Hydrocortisone 2.5% Crm 30 GM Tube TOP PRN (23:56)
[2021-10-10] MEDS ORDERED: Lidocaine 5% 700 MG Patch TOP PRN (23:56)
[2021-10-10] MEDS ORDERED: Loratadine 10 MG Tab PO PRN (23:56)
[2021-10-11] MEDS: Hydrocortisone Sodium Succinate 100 MG/2 ML SDV IVPUSH SCH ×4 (01:11→17:49)
[2021-10-11] MEDS ORDERED: Sodium Chloride 0.9% 1,000 ML IV SCH (02:00)
[2021-10-11] MEDS: Piperacillin/Tazobactam 3.375 GM in Sodium Chloride 0.9% 100 ML IV SCH ×4 (04:39→21:44)
[2021-10-11 09:22] LABS: ANION GAP 14.1 mEq/L (7-13)
[2021-10-11] MEDS: Formoterol/Mometasone 200-5 MCG 8.8 GM Inhaler IH SCH ×2 (09:46→20:02)
[2021-10-11] MEDS: Carboxymethylcellulose Sodium 1% Ophth Gel 0.4 ML UD EYEBOTH SCH ×4 (09:47→20:02)
[2021-10-11] MEDS: Oxybutynin 5 MG Tab PO SCH (09:48)
[2021-10-11] MEDS: Cholecalciferol (Vitamin D3) 25 MCG Tab PO SCH (09:48)
[2021-10-11] MEDS: Ascorbic Acid 500 MG Tab PO SCH (09:48)
[2021-10-11] MEDS: Enoxaparin 40 MG/0.4 ML Syringe SUBCUT SCH (09:48)
[2021-10-11] MEDS: Multivitamin Tab PO SCH (09:48)
[2021-10-11] MEDS: Gabapentin 300 MG Cap PO SCH ×2 (09:48→20:01)
[2021-10-11] MEDS: Saccharomyces Boulardii (Probiotic) 250 MG Cap PO SCH ×2 (09:48→20:01)
[2021-10-11] MEDS: Ferrous Sulfate 325 MG Tab PO SCH (09:48)
[2021-10-11] MEDS: Montelukast 10 MG Tab PO SCH (09:48)
[2021-10-11] MEDS: Spironolactone 25 MG Tab PO SCH ×2 (10:24→20:01)
[2021-10-11] MEDS: Acetaminophen 325 MG Tab PO PRN (12:40)
[2021-10-11] MEDS: Fluticasone NASAL Spray 16 GM Bottle NASBOTH SCH (20:02)
[2021-10-11] MEDS: oxyCODONE 5 MG Tab PO PRN (21:43)
[2021-10-11] MEDS: Zolpidem 5 MG Tab PO PRN (21:43)
[2021-10-12] MEDS: Piperacillin/Tazobactam 3.375 GM in Sodium Chloride 0.9% 100 ML IV SCH ×4 (03:59→22:11)
[2021-10-12 05:46] LABS: BORDETELLA PARAPERT IS1001 Not Detected (Not Detected)
[2021-10-12 07:33] LABS: ANION GAP 11.7 mEq/L (7-13)
[2021-10-12] MEDS: Saccharomyces Boulardii (Probiotic) 250 MG Cap PO SCH ×2 (10:54→21:09)
[2021-10-12] MEDS: Spironolactone 25 MG Tab PO SCH ×2 (10:55→21:11)
[2021-10-12] MEDS: Gabapentin 300 MG Cap PO SCH ×2 (10:58→21:09)
[2021-10-12] MEDS: Montelukast 10 MG Tab PO SCH (11:00)
[2021-10-12] MEDS: Cholecalciferol (Vitamin D3) 25 MCG Tab PO SCH (11:00)
[2021-10-12] MEDS: Ferrous Sulfate 325 MG Tab PO SCH (11:01)
[2021-10-12] MEDS: Oxybutynin 5 MG Tab PO SCH (11:01)
[2021-10-12] MEDS: Multivitamin Tab PO SCH (11:01)
[2021-10-12] MEDS: Ascorbic Acid 500 MG Tab PO SCH (11:01)
[2021-10-12] MEDS: Formoterol/Mometasone 200-5 MCG 8.8 GM Inhaler IH SCH ×2 (11:02→21:12)
[2021-10-12] MEDS: Enoxaparin 40 MG/0.4 ML Syringe SUBCUT SCH (11:02)
[2021-10-12] MEDS: Carboxymethylcellulose Sodium 1% Ophth Gel 0.4 ML UD EYEBOTH SCH ×3 (11:05→21:11)
[2021-10-12] MEDS: oxyCODONE 5 MG Tab PO PRN ×2 (11:07→21:09)
[2021-10-12] MEDS: Fluticasone NASAL Spray 16 GM Bottle NASBOTH SCH (21:12)
[2021-10-12] MEDS: Zolpidem 5 MG Tab PO PRN (22:11)
[2021-10-13] MEDS: Piperacillin/Tazobactam 3.375 GM in Sodium Chloride 0.9% 100 ML IV SCH ×2 (04:09→09:46)
[2021-10-13] MEDS: oxyCODONE 5 MG Tab PO PRN (04:49)
[2021-10-13 07:08] LABS: ANION GAP 12.1 mEq/L (7-13)
[2021-10-13 08:08] VITALS: BP 117/91; PULSE 78
[2021-10-13] MEDS: Enoxaparin 40 MG/0.4 ML Syringe SUBCUT SCH (09:46)
[2021-10-13] MEDS: Saccharomyces Boulardii (Probiotic) 250 MG Cap PO SCH (09:47)
[2021-10-13] MEDS: Gabapentin 300 MG Cap PO SCH (09:48)
[2021-10-13] MEDS: Montelukast 10 MG Tab PO SCH (09:49)
[2021-10-13] MEDS: Multivitamin Tab PO SCH (09:49)
[2021-10-13] MEDS: Spironolactone 25 MG Tab PO SCH (09:49)
[2021-10-13] MEDS: Cholecalciferol (Vitamin D3) 25 MCG Tab PO SCH (09:49)
[2021-10-13] MEDS: Oxybutynin 5 MG Tab PO SCH (09:49)
[2021-10-13] MEDS: Ferrous Sulfate 325 MG Tab PO SCH (09:50)
[2021-10-13] MEDS: Formoterol/Mometasone 200-5 MCG 8.8 GM Inhaler IH SCH (10:12)
[2021-10-13] MEDS: Ascorbic Acid 500 MG Tab PO SCH (10:13)
[2021-10-13] MEDS: Carboxymethylcellulose Sodium 1% Ophth Gel 0.4 ML UD EYEBOTH SCH (10:17)
== END 2021-10-13 11:55 | disposition home or self-care (01) | DRG 871 ==
LOC: DL.ED 01:27 → DL.MS 10:34 → DL.ED 13:56
PROVIDERS: ADMIT Internal Medicine; ATTEND Internal Medicine
PROC: 3E03329 Introduction of Other Anti-infective into Peripheral Vein, Percutaneous Approach (ICD-10-PCS; principal; 2021-10-10)
PROC: 3E033XZ Introduction of Vasopressor into Peripheral Vein, Percutaneous Approach (ICD-10-PCS; 2021-10-10)
DX: A41.1 Sepsis due to other specified staphylococcus (principal); R65.21 Severe sepsis with septic shock; N39.0 Urinary tract infection, site not specified; J98.11 Atelectasis; N17.9 Acute kidney failure, unspecified; E83.42 Hypomagnesemia; Z20.822 Contact with and (suspected) exposure to COVID-19; M25.561 Pain in right knee; M25.562 Pain in left knee; K21.9 Gastro-esophageal reflux disease without esophagitis; K70.30 Alcoholic cirrhosis of liver without ascites; J45.909 Unspecified asthma, uncomplicated; Z79.899 Other long term (current) drug therapy
CPT/HCPCS: 0240U; 36415; 71260; 73560-LT; 73560-RT; 74177; 80048; 80053; 80202; 80305-QW; 80307; 81001; 82150; 82306; 82533; 82550; 83605; 83690; 83735; 84100; 84145; 84439; 84443; 84703; 85025; 85379; 86140; 86850; 86900; 86901; 87040; 87086; 87088; 87186; 87252; 87486; 87581; 87633; 87798; 93971; 96361; 96365; 96366; 96367; 96368; 96375; 97161-GP; 97165-GO; 99284; 99285-25; A9270-GY; J1200; J1650; J1720; J1885; J2405; J2543; J3010; J3370; J3475; J7030; J7050; J7060; Q9967

== ENCOUNTER 2022-06-09 11:40 | Emergency (ER) | payer MEDICAID ==
[2022-06-09] MEDS ORDERED: Sodium Chloride 0.9% 10 ML Syringe FLUSH PRN (11:54)
[2022-06-09 12:09] VITALS: BP 115/81; PULSE 70
[2022-06-09 13:10] LABS: PTT,PARTIAL THROMBOPLSTIN TIME 23.3 SEC (22.0-34.0)
[2022-06-09 13:16] LABS: ANION GAP 12.4 mEq/L (7-13)
[2022-06-09 14:12] LABS: AMPHETAMINES,URINE NEGATIVE (NEGATIVE); BARBITURATES,URINE NEGATIVE (NEGATIVE); BENZODIAZEPINE,URINE NEGATIVE (NEGATIVE); MDMA (ECSTASY), URINE NEGATIVE (NEGATIVE); METHADONE,URINE NEGATIVE (NEGATIVE); METHAMPHETAMINES,URINE NEGATIVE (NEGATIVE); OPIATES,URINE NEGATIVE (NEGATIVE); OXYCODONE,URINE NEGATIVE (NEGATIVE); PHENCYCLIDINE,URINE NEGATIVE (NEGATIVE); TCA,URINE NEGATIVE (NEGATIVE)
[2022-06-09] MEDS ORDERED: Magnesium Oxide 400 MG Tab PO ONE (14:18)
== END 2022-06-09 14:30 | disposition home or self-care (01) ==
LOC: DL.ED 11:40
DX: R07.89 Other chest pain (principal); E83.42 Hypomagnesemia; J45.909 Unspecified asthma, uncomplicated; K21.9 Gastro-esophageal reflux disease without esophagitis; Z79.51 Long term (current) use of inhaled steroids; Z79.899 Other long term (current) drug therapy; Z88.1 Allergy status to other antibiotic agents
CPT/HCPCS: 36415; 71045; 80053; 80305; 80307; 81003; 83605; 83735; 83880; 84443; 84484; 85025; 85610; 85730; 93005; 93010; 99284; 99285; A9270

== ENCOUNTER 2023-03-01 18:19 | Emergency (ER) | payer MEDICAID ==
[2023-03-01 18:35] VITALS: BP 146/110; PULSE 99
[2023-03-01 19:28] LABS: CORONAVIRUS COVID-19 NAA NEGATIVE (NEGATIVE); INFLUENZA A NAA NEGATIVE (NEGATIVE); INFLUENZA B NAA NEGATIVE (NEGATIVE); RESPIRATORY SYNCYTIAL VIR NAA NEGATIVE (NEGATIVE)
[2023-03-01 20:01] LABS: BASOPHILS PERCENT AUTO 0.3 % (0.0-1.0); HEMATOCRIT 43.2 % (37.0-47.0); HEMOGLOBIN 14.8 g/dL (12.0-16.0); LYMPHOCYTES PERCENT AUTO 8.2 % (20.5-50.1); MEAN CORPUSCULAR HEMOGLOBIN 31.2 pg (27.0-34.0); MEAN CORPUSCULAR HGB CONC 34.3 g/dL (33.0-35.0); MEAN CORPUSCULAR VOLUME 91.1 fL (80-100); MONOCYTES PERCENT AUTO 5.3 % (2-8); NEUTROPHILS PERCENT AUTO 86.2 % (42.2-75.2); PLATELET COUNT,PLT 94 10^3/uL (150-450); RED BLOOD CELL COUNT 4.74 10^6/uL (4.2-5.4); WHITE BLOOD CELL COUNT,WBC 11.6 10^3/uL (5.0-10.0)
[2023-03-01 20:23] LABS: A/G RATIO 0.8; ALANINE AMINOTRANSFERASE,ALT 92 U/L (14-59); ALBUMIN 3.6 g/dL (3.4-5.0); ALKALINE PHOSPHATASE 84 U/L (46-116); AMYLASE 55 U/L (25-115); ANION GAP 20.8 mEq/L (7-13); ASPARTATE AMNIOTRANSFERASE,AST 191 U/L (15-37); BILIRUBIN TOTAL 1.3 mg/dL (0.2-1.0); BLOOD UREA NITROGEN,BUN 25 mg/dL (7-18); BUN/CREATININE RATIO 20.8 (No establ ref range); C-REACTIVE PROTEIN 3.32 ng/dL (<=0.50); CALCIUM 8.2 mg/dL (8.5-10.1); CARBON DIOXIDE,CO2 22 mmol/L (21-32); CHLORIDE,CL 97 mmol/L (98-107); EST CRCL DRUG DOSING (CG) 52.15 mL/min; GLUCOSE RANDOM 115 mg/dL (70-99); LIPASE 54 U/L (16-77); MAGNESIUM 2.3 mg/dL (1.8-2.4); POTASSIUM,K 2.8 mmol/L (3.5-5.1); PROTEIN TOTAL,TP 7.9 g/dL (6.4-8.2); SODIUM,NA 137 mmol/L (136-145)
[2023-03-01 20:24] LABS: ESTIMATED GFR 56 mL/min (>=60); ETHANOL BLOOD MEDICAL < 3 mg/dL (0); LACTIC ACID 1.3 mmol/L (0.4-2.0)
[2023-03-01 20:34] LABS: INR 1.1 (0.9-1.2)
[2023-03-01 20:36] LABS: PTT,PARTIAL THROMBOPLSTIN TIME 24.1 SEC (22.0-34.0)
[2023-03-01] MEDS ORDERED: diphenhydrAMINE 50 MG/ML SDV IVPUSH ONE (20:41)
[2023-03-01] MEDS ORDERED: Potassium Chloride 20 MEQ in Premix Bag 1 BAG IV ONE ×2 (20:41→20:42)
[2023-03-01] MEDS ORDERED: Iopamidol 612 MG/ML 100 ML Bottle IVPUSH ONE (20:41)
[2023-03-01] MEDS ORDERED: Sodium Chloride 0.9% 10 ML Syringe FLUSH SCH (21:00)
[2023-03-01 22:32] LABS: APPEARANCE,URINE SLIGHTLY CLOUDY (CLEAR); BILIRUBIN,URINE SMALL (NEGATIVE); COLOR,URINE YELLOW (YELLOW); GLUCOSE,URINE NEGATIVE (NEGATIVE); KETONES,URINE 80 (NEGATIVE); LEUKOCYTE ESTERASE,URINE NEGATIVE (NEGATIVE); NITRITE,URINE NEGATIVE (NEGATIVE); OCCULT BLOOD,URINE LARGE (NEGATIVE); PROTEIN,URINE 30 (NEGATIVE); UROBILINOGEN,URINE 0.2 mg/dL (0.2-1.0)
[2023-03-01 22:34] LABS: AMPHETAMINES,URINE NEGATIVE (NEGATIVE); BARBITURATES,URINE NEGATIVE (NEGATIVE); BENZODIAZEPINE,URINE NEGATIVE (NEGATIVE); MDMA (ECSTASY), URINE NEGATIVE (NEGATIVE); METHADONE,URINE NEGATIVE (NEGATIVE); METHAMPHETAMINES,URINE NEGATIVE (NEGATIVE); OPIATES,URINE NEGATIVE (NEGATIVE); OXYCODONE,URINE NEGATIVE (NEGATIVE); PHENCYCLIDINE,URINE NEGATIVE (NEGATIVE); TCA,URINE NEGATIVE (NEGATIVE)
[2023-03-01 22:40] LABS: BACTERIA,URINE MODERATE /HPF (0-FEW/HPF); EPITHELIAL CELLS,URINE MODERATE /HPF (NOT SEEN); RBC,URINE >100 /HPF (0-5); WBC,URINE 0-5 /HPF (0-5/HPF)
[2023-03-01] MEDS ORDERED: Aluminum Hydroxide/Magnesium Hydroxide/Simethicone Susp 30 ML Cup PO ONE (23:22)
[2023-03-01] MEDS ORDERED: Pantoprazole 40 MG Vial IVPUSH ONE (23:22)
[2023-03-02] MEDS ORDERED: Take Home: Ondansetron 4 MG Tab.DIS, 5 Tab Pack PO ONE (00:24)
[2023-03-02] MEDS ORDERED: Potassium Chloride 10 MEQ Tab.ER PO ONE (00:58)
== END 2023-03-02 05:25 | disposition home or self-care (01) ==
LOC: DL.ED 18:19
DX: I85.00 Esophageal varices without bleeding (principal); E87.6 Hypokalemia; K21.00 Gastro-esophageal reflux disease with esophagitis, without bleeding; I86.4 Gastric varices; K44.9 Diaphragmatic hernia without obstruction or gangrene; J45.909 Unspecified asthma, uncomplicated; Z79.899 Other long term (current) drug therapy; Z88.8 Allergy status to other drugs, medicaments and biological substances
CPT/HCPCS: 0241U; 36415; 71045; 74177; 80053; 80305-QW; 80307; 81001; 82150; 83605; 83690; 83735; 84484; 85025; 85610; 85730; 86140; 93005; 93010; 96365; 96366; 96375; 99284; 99285-25; A9270-GY; C9113; J1200; J3480; J3490; Q0162; Q9967

== ENCOUNTER 2023-12-20 11:03 | Emergency (ER) | payer MEDICAID ==
[2023-12-20] MEDS: Iopamidol 612 MG/ML 100 ML Bottle IVPUSH ONE (11:03)
[2023-12-20] MEDS: Sodium Chloride 0.9% 1,000 ML IV ONE (11:23)
[2023-12-20 11:31] LABS: BASOPHILS PERCENT AUTO 0.2 % (0.0-1.0); EOSINOPHILS PERCENT AUTO 3.7 % (1.0-3.0); HEMATOCRIT 41.6 % (37.0-47.0); HEMOGLOBIN 14.3 g/dL (12.0-16.0); LYMPHOCYTES PERCENT AUTO 36.2 % (20.5-50.1); MEAN CORPUSCULAR HEMOGLOBIN 32.1 pg (27.0-34.0); MEAN CORPUSCULAR HGB CONC 34.4 g/dL (33.0-35.0); MEAN CORPUSCULAR VOLUME 93.5 fL (80-100); NEUTROPHILS PERCENT AUTO 48.9 % (42.2-75.2); PLATELET COUNT,PLT 126 10^3/uL (150-450); RED BLOOD CELL COUNT 4.45 10^6/uL (4.2-5.4); WHITE BLOOD CELL COUNT,WBC 5.4 10^3/uL (5.0-10.0)
[2023-12-20 11:47] LABS: ALBUMIN 4.2 g/dL (3.4-5.0); ANION GAP 19.7 mEq/L (7-13); BILIRUBIN TOTAL 0.4 mg/dL (0.2-1.0); BUN/CREATININE RATIO 7.5 (No establ ref range); CALCIUM 10.4 mg/dL (8.5-10.1); CREATININE 1.47 mg/dL (0.55-1.02); EST CRCL DRUG DOSING (CG) 44.29 mL/min; MAGNESIUM 2.1 mg/dL (1.8-2.4); POTASSIUM,K 2.7 mmol/L (3.5-5.1); PROTEIN TOTAL,TP 8.5 g/dL (6.4-8.2)
[2023-12-20] MEDS: Potassium Chloride 10 MEQ Tab.ER PO ONE (12:25)
[2023-12-20 13:20] VITALS: BP 90/70; PULSE 107
[2023-12-20] MEDS: Ketorolac 30 MG/ML SDV IVPUSH ONE (13:31)
[2023-12-20] MEDS: Sodium Chloride 0.9% 10 ML Syringe FLUSH PRN (13:31)
== END 2023-12-20 13:36 | disposition home or self-care (01) ==
LOC: DL.ED 11:03
DX: R10.13 Epigastric pain (principal); R07.81 Pleurodynia; J45.909 Unspecified asthma, uncomplicated; K21.9 Gastro-esophageal reflux disease without esophagitis; Z88.1 Allergy status to other antibiotic agents; Z79.51 Long term (current) use of inhaled steroids; Z79.899 Other long term (current) drug therapy; W50.1XXA Accidental kick by another person, initial encounter; Y92.019 Unspecified place in single-family (private) house as the place of occurrence of the external cause
CPT/HCPCS: 36415; 71260; 74177; 80053; 80307; 83735; 84703; 85025; 86850; 86900; 86901; 96374; 99285; A9270; J1885; J7030; Q9967; J3490

== ENCOUNTER 2024-02-09 22:48 | Emergency (ER) | payer MEDICAID ==
[2024-02-09 23:02] LABS: BASOPHILS PERCENT AUTO 0.1 % (0.0-1.0); HEMATOCRIT 41.2 % (37.0-47.0); HEMOGLOBIN 13.8 g/dL (12.0-16.0); LYMPHOCYTES PERCENT AUTO 6.7 % (20.5-50.1); MEAN CORPUSCULAR HEMOGLOBIN 31.9 pg (27.0-34.0); MEAN CORPUSCULAR HGB CONC 33.5 g/dL (33.0-35.0); MEAN CORPUSCULAR VOLUME 95.2 fL (80-100); MONOCYTES PERCENT AUTO 2.4 % (2-8); NEUTROPHILS PERCENT AUTO 90.8 % (42.2-75.2); PLATELET COUNT,PLT 98 10^3/uL (150-450); RED BLOOD CELL COUNT 4.33 10^6/uL (4.2-5.4); WHITE BLOOD CELL COUNT,WBC 12.2 10^3/uL (5.0-10.0)
[2024-02-09] MEDS: Sodium Chloride 0.9% 1,000 ML IV ONE ×2 (23:07→23:45)
[2024-02-09] MEDS: Ketorolac 30 MG/ML SDV IVPUSH ONE (23:08)
[2024-02-09] MEDS: Ondansetron 4 MG/2 ML SDV IVPUSH ONE (23:08)
[2024-02-09 23:11] LABS: APPEARANCE,URINE SLIGHTLY CLOUDY (CLEAR); BILIRUBIN,URINE NEGATIVE (NEGATIVE); COLOR,URINE YELLOW (YELLOW); GLUCOSE,URINE NEGATIVE (NEGATIVE); KETONES,URINE >=160 (NEGATIVE); LEUKOCYTE ESTERASE,URINE MODERATE (NEGATIVE); NITRITE,URINE NEGATIVE (NEGATIVE); OCCULT BLOOD,URINE SMALL (NEGATIVE); PH,URINE 7.5 (5.0-9.0); PROTEIN,URINE 100 (NEGATIVE); UROBILINOGEN,URINE 0.2 mg/dL (0.2-1.0)
[2024-02-09 23:15] LABS: AMPHETAMINES,URINE NEGATIVE (NEGATIVE); BARBITURATES,URINE NEGATIVE (NEGATIVE); BENZODIAZEPINE,URINE NEGATIVE (NEGATIVE); MDMA (ECSTASY), URINE NEGATIVE (NEGATIVE); METHADONE,URINE NEGATIVE (NEGATIVE); METHAMPHETAMINES,URINE NEGATIVE (NEGATIVE); OPIATES,URINE NEGATIVE (NEGATIVE); OXYCODONE,URINE NEGATIVE (NEGATIVE); PHENCYCLIDINE,URINE NEGATIVE (NEGATIVE); TCA,URINE NEGATIVE (NEGATIVE)
[2024-02-09 23:20] LABS: ALANINE AMINOTRANSFERASE,ALT 54 U/L (14-59); ALBUMIN 3.9 g/dL (3.4-5.0); ALKALINE PHOSPHATASE 102 U/L (46-116); ANION GAP 30.6 mEq/L (7-13); ASPARTATE AMNIOTRANSFERASE,AST 114 U/L (15-37); BILIRUBIN TOTAL 1.6 mg/dL (0.2-1.0); BLOOD UREA NITROGEN,BUN 20 mg/dL (7-18); BUN/CREATININE RATIO 17.1 (No establ ref range); CALCIUM 8.7 mg/dL (8.5-10.1); CARBON DIOXIDE,CO2 17 mmol/L (21-32); CHLORIDE,CL 95 mmol/L (98-107); CREATININE 1.17 mg/dL (0.55-1.02); EST CRCL DRUG DOSING (CG) 52.91 mL/min; GLUCOSE RANDOM 105 mg/dL (70-99); LIPASE 32 U/L (16-77); MAGNESIUM 1.8 mg/dL (1.8-2.4); POTASSIUM,K 3.6 mmol/L (3.5-5.1); PROTEIN TOTAL,TP 7.9 g/dL (6.4-8.2); SODIUM,NA 139 mmol/L (136-145)
[2024-02-09 23:22] LABS: ESTIMATED GFR 58 mL/min (>=60); ETHANOL BLOOD MEDICAL < 3 mg/dL (0)
[2024-02-09 23:23] LABS: LACTIC ACID 2.2 mmol/L (0.4-2.0)
[2024-02-09 23:24] LABS: B-TYPE NATRIURETIC PEPTIDE,BNP 231 pg/ml (0-100)
[2024-02-09 23:27] LABS: AMORPHOUS SEDIMENT,URINE FEW /HPF (NOT SEEN); BACTERIA,URINE MODERATE /HPF (0-FEW/HPF); EPITHELIAL CELLS,URINE FEW /HPF (NOT SEEN); WBC,URINE PACKED /HPF (0-5/HPF)
[2024-02-10 00:40] VITALS: BP 130/90
[2024-02-10 00:49] VITALS: PULSE 95
[2024-02-10] MEDS: cefTRIAXone 1 GM Vial IVPUSH ONE (01:36)
[2024-02-10] MEDS: Take Home: Ondansetron 4 MG Tab.DIS, 5 Tab Pack PO ONE (02:10)
== END 2024-02-10 02:11 | disposition home or self-care (01) ==
LOC: DL.ED 22:48
DX: R07.89 Other chest pain (principal); R07.81 Pleurodynia; N30.01 Acute cystitis with hematuria; E86.0 Dehydration; K21.9 Gastro-esophageal reflux disease without esophagitis; J45.909 Unspecified asthma, uncomplicated; Z79.899 Other long term (current) drug therapy; Z88.8 Allergy status to other drugs, medicaments and biological substances
CPT/HCPCS: 36415; 71045; 80053; 80305; 80307; 81001; 81025; 83605; 83690; 83735; 83880; 84484; 85025; 87086; 87088; 87186; 93005; 96361; 96374; 96375; 99285; J0696; J1885; J2405; J7030; Q0162